=== PATIENT | female | born 1950 | race Caucasian/White ===

== ENCOUNTER 2016-10-07 13:48 | Emergency (ER) | payer MEDICARE, BC ==
[2016-10-07] MEDS ORDERED: Sodium Chloride 0.9% 1000 ML 1,000 ML IV STA (13:57)
[2016-10-07] MEDS ORDERED: Phenergan 25 MG INJ IV ONE (13:57)
--- NOTE | 2016-10-07 13:58 | ERPHSYRPT ---
- History of Present Illness Time Seen by Provider: 10/07/16 13:48 Source: patient Exam Limitations: no limitations Physician History: FOR THE PAST 2 DAYS PT HAS HAD DIZZINESS, VAGINAL DISCHARGE AND NAUSEA WITH AN OCCASIONAL COUGH. PT DENIES FEVER, VOMITING, CHEST PAIN. Allergies/Adverse Reactions: codeine [Codeine] Allergy (Verified 03/01/15 09:03) Vomiting diazepam [From Valium] Allergy (Verified 03/01/15 09:03) Hives "makes me mean" hydromorphone HCl [From Dilaudid] Allergy (Verified 03/01/15 09:03) Vomiting Penicillins Allergy (Verified 03/01/15 09:03) Itching Home Medications: Carvedilol 3.125 mg [Coreg 3.125 MG] 3.125 mg PO BID 07/27/14 [History] Clopidogrel Bisulfate 75 mg [PLAVIX 75 MG Tablet] 75 mg PO DAILY 07/27/14 [History] Gabapentin [Neurontin] 800 mg PO TID 07/27/14 [History] Insulin Glargine [Lantus Insulin] 30 unit SQ BID 07/27/14 [History] Insulin Lispro [Humalog] 3 unit SQ TIDAC 07/27/14 [History] Sertraline HCl 50 mg [Zoloft 50 mg Tablet] 50 mg PO HS 07/27/14 [History] Hx Tetanus, Diphtheria Vaccination/Date Given: Yes (7 YRS) Hx Influenza Vaccination/Date Given: Yes Hx Pneumococcal Vaccination/Date Given: Yes - Review of Systems Constitutional: No Fever Respiratory: Cough, No Dyspnea Cardiac: No Chest Pain Abdominal/Gastrointestinal: Nausea, No Vomiting Genitourinary Symptoms: Vaginal Discharge Neurological: Dizziness All Other Systems: Reviewed and Negative - Past Medical History Pertinent Past Medical History: Yes Neurological History: Peripheral Neuropathy ENT History: No Pertinent History Cardiac History: Coronary Artery Disease, Peripheral Vascular Disease Respiratory History: No Pertinent History Endocrine Medical History: Diabetes Type II Musculoskeletal History: No Pertinent History GI Medical History: Crohns Disease, Other History: No Pertinent History Psycho-Social History: Depression Female Reproductive Disorders: Cervical Cancer Other Medical History: TROPICAL SKIN DISEASE. 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 heartburn - Past Surgical History Past Surgical History: Yes Neuro Surgical History: No Pertinent History Cardiac: Cardiac Catheterization, Cardiac Stent Respiratory: No Pertinent History Gastrointestinal: Cholecystectomy, Colon Resection Genitourinary: No Pertinent History Musculoskeletal: Amputation Female Surgical History: Hysterectomy Other Surgical History: VASCULAR SURGERIES. LEFT LEG AMPUTATED. COLOSTOMY - Social History Smoking Status: Current every day smoker How long have you smoked: 45 Exposure to second hand smoke: Yes Drug Use: none Patient Lives Alone: Yes - Female History Hx Now: No - Nursing Vital Signs Nursing Vital Signs: Initial Vital Signs Temperature 98.2 F Temperature Source Oral Pulse Rate 104 Respiratory Rate 22 Blood Pressure [Left Arm] 128/76 Pain Intensity 3 - Physical Exam General Appearance: alert Eye Exam: PERRL/EOMI Ears, Nose, Throat Exam: pharynx normal, moist mucous membranes Neck Exam: normal inspection Respiratory Exam: lungs clear Cardiovascular Exam: normal heart sounds Gastrointestinal/Abdomen Exam: soft, normal bowel sounds, other (COLOSTOMY PRESENT WITHOUT SURROUNDING ERYTHEMA OR DISCHARGE) Pelvic Exam: vaginal discharge (MINIMAL WHITE DISCHARGE MID VULVA(NURSE PRESENT DURING EXAM).) Back Exam: normal range of motion Extremity Exam: other (LEFT LEG AMPUTEE) Neurologic Exam: alert, cooperative Skin Exam: No cyanosis - Course Nursing assessment & vital signs reviewed: Yes Ordered Tests: Active Orders 24 hr Category Date Time Status IV Insertion STAT Care 10/07/16 13:57 Active AMYLASE Stat Lab 10/07/16 14:20 Completed CBC W DIFF Stat Lab 10/07/16 14:20 Completed CMP Stat Lab 10/07/16 14:20 Completed CULTURE,URINE Stat Lab 10/07/16 14:35 Received CULTURE,URINE Stat Lab 10/07/16 14:35 Received LIPASE Stat Lab 10/07/16 14:20 Completed MAG [MAGNESIUM] Stat Lab 10/07/16 14:20 Completed Manual Differential NC Stat Lab 10/07/16 14:20 Completed UA W/ MICROSCOPIC Stat Lab 10/07/16 14:35 Completed UA W/RFX UR CULTURE Stat Lab 10/07/16 14:35 Completed Medication Summary Generic Name Dose Route Start Last Admin Trade Name Freq PRN Reason Stop Dose Admin Magnesium Sulfate/Dextrose 100 mls @ 200 mls/hr 10/07/16 15:22 Magnesium 1 Gm / 100 Ml D5w IV 10/07/16 15:51 STAT ONE Ceftriaxone Sodium/Dextrose 1 g in 50 mls @ 100 mls/hr 10/07/16 15:22 Rocephin 1 Gm-D5w 50 Ml Bag IV 10/07/16 15:51 STAT STA Discontinued Medications Generic Name Dose Route Start Last Admin Trade Name Mihaela PRN Reason Stop Dose Admin Sodium Chloride 1,000 mls @ 999 mls/hr 10/07/16 13:57 10/07/16 14:26 Sodium Chloride 0.9% 1000 Ml IV 10/07/16 14:57 999 mls/hr .Q1H1M STA Administration Sodium Chloride Confirm 10/07/16 14:04 Sodium Chloride 0.9% 1000 Ml Administered 10/07/16 14:05 Dose 1,000 mls @ ud .ROUTE .STK-MED ONE Promethazine HCl 12.5 mg 10/07/16 13:57 10/07/16 14:26 Phenergan 25 Mg Inj IV 10/07/16 13:58 12.5 mg STAT ONE Administration Promethazine HCl Confirm 10/07/16 14:04 Phenergan 25 Mg Inj Administered 10/07/16 14:05 Dose 25 mg .ROUTE .STK-MED ONE Lab/Rad Data: Laboratory Result Diagrams 10/07/16 14:20 10/07/16 14:20 Laboratory Results 10/07/16 10/07/16 10/07/16 Range/Units 14:35 14:35 14:20 WBC (4.0-10.5) K/mm3 RBC (4.1-5.4) M/mm3 Hgb (12.0-16.0) gm/dl Hct (35-47) % MCV (78-100) fl MCH (26-32) pg MCHC (32-36) g/dl RDW (11.5-14.0) % Plt Count (150-450) K/mm3 MPV (6-9.5) fl Segmented Neutrophils (36.0-66.0) % Lymphocytes (Manual) (24-44) % Monocytes (Manual) (0.0-12.0) % Differential Comment Platelet Estimate (NORMAL) Polychromasia Hypochromasia Microcytosis Sodium (136-145) mEq/L Potassium (3.5-5.1) mEq/L Chloride (98-107) mEq/L Carbon Dioxide (21-32) mEq/L Anion Gap (5-15) MEQ/L BUN (9-20) mg/dL Creatinine (0.55-1.30) mg/dl Estimated GFR ML/MIN Glucose (70-110) MG/DL Calcium (8.5-10.1) mg/dL Magnesium 1.5 L (1.8-2.4) mg/dL Total Bilirubin (0.2-1.0) mg/dL AST (15-37) U/L ALT (12-78) U/L Alkaline Phosphatase (46-116) U/L Serum Total Protein (6.4-8.2) gm/dL Albumin (3.4-5.0) g/dL Amylase (25-115) U/L Lipase (73-393) U/L Ur Collection Type INDWELLING CATH INDWELLING CATH Urine Color YELLOW YELLOW (YELLOW) Urine Appearance CLOUDY CLOUDY (CLEAR) Urine pH 5.0 7.0 (5-6) Ur Specific [place] 1.020 1.010 (1.005-1.025) Urine Protein 1+ 2+ (Negative) Urine Ketones NEGATIVE NEGATIVE (NEGATIVE) Urine Blood 50 250 (0-5) Sherif/ul Urine Nitrite POSITIVE POSITIVE (NEGATIVE) Urine Bilirubin NEGATIVE NEGATIVE (NEGATIVE) Urine Urobilinogen NORMAL NORMAL (0-1) mg/dL Ur Leukocyte Esterase 2+ 2+ (NEGATIVE) Urine Microscopic RBC 5-10 (0-2) /HPF Urine Microscopic WBC >100 (0-5) /HPF Urine Bacteria MANY (NEGATIVE) /HPF Urine Glucose 250 250 (NEGATIVE) mg/dL Specimen Received 10/07/16 1435 10/07/16 1435 10/07/16 10/07/16 Range/Units 14:20 14:20 WBC 5.8 (4.0-10.5) K/mm3 RBC 4.23 (4.1-5.4) M/mm3 Hgb 8.3 L (12.0-16.0) gm/dl Hct 28.5 L (35-47) % MCV 67.4 L (78-100) fl MCH 19.6 L (26-32) pg MCHC 29.1 L (32-36) g/dl RDW 17.2 H (11.5-14.0) % Plt Count 215 (150-450) K/mm3 MPV 10.3 H (6-9.5) fl Segmented Neutrophils 79 H (36.0-66.0) % Lymphocytes (Manual) 18 L (24-44) % Monocytes (Manual) 3 (0.0-12.0) % Differential Comment ABNORMAL Platelet Estimate NORMAL (NORMAL) Polychromasia 1+ Hypochromasia 3+ Microcytosis 2+ Sodium 136 (136-145) mEq/L Potassium 3.6 (3.5-5.1) mEq/L Chloride 100 (98-107) mEq/L Carbon Dioxide 26.3 (21-32) mEq/L Anion Gap 13.1 (5-15) MEQ/L BUN 11 (9-20) mg/dL Creatinine 0.84 (0.55-1.30) mg/dl Estimated GFR > 60 ML/MIN Glucose 198 H (70-110) MG/DL Calcium 9.4 (8.5-10.1) mg/dL Magnesium (1.8-2.4) mg/dL Total Bilirubin 0.20 (0.2-1.0) mg/dL AST 14 L (15-37) U/L ALT 14 (12-78) U/L Alkaline Phosphatase 89 (46-116) U/L Serum Total Protein 8.1 (6.4-8.2) gm/dL Albumin 2.5 L (3.4-5.0) g/dL Amylase 53 (25-115) U/L Lipase 124 (73-393) U/L Ur Collection Type Urine Color (YELLOW) Urine Appearance (CLEAR) Urine pH (5-6) Ur Specific [place] (1.005-1.025) Urine Protein (Negative) Urine Ketones (NEGATIVE) Urine Blood (0-5) Sherif/ul Urine Nitrite (NEGATIVE) Urine Bilirubin (NEGATIVE) Urine Urobilinogen (0-1) mg/dL Ur Leukocyte Esterase (NEGATIVE) Urine Microscopic RBC (0-2) /HPF Urine Microscopic WBC (0-5) /HPF Urine Bacteria (NEGATIVE) /HPF Urine Glucose (NEGATIVE) mg/dL Specimen Received - Progress Progress Note: 10/07/16 15:26 PT REFUSES HOSPITALIZATION. - Departure Time of Disposition: 15:32 Departure Disposition: Home Clinical Impression: UTI, VAGINAL CANDIDIASIS, ANEMIA, LEFT LEG AMPUTEE, HYPOMAGNESEMIA, PN, CAD, PVD, DM, DEPRESSION Condition: Stable Critical Care Time: No Referrals: PATRICIA GRAY [Primary Care Provider] - Instructions: Urinary Tract Infection (UTI) Additional Instructions: FOLLOW UP WITH PRIVATE DOCTOR TOMORROW. Prescriptions: Ferrous Sulfate 325 mg [Feosol 325 mg] 325 mg PO DAILY #30 tablet Miconazole Nitrate [Monistat 7] 1 ea VG DAILY #7 box Smz/Tmp Ds Tablet [Bactrim Ds Tablet] 1 udtab PO BID #20 tablet
[2016-10-07] MEDS ORDERED: Sodium Chloride 0.9% 1000 ML 1,000 ML ONE (14:04)
[2016-10-07] MEDS ORDERED: Phenergan 25 MG INJ ONE (14:04)
[2016-10-07 14:32] LABS: Mean Cell Volume 67.4 fl (78-100); Mean Corpuscular Hemoglobin 19.6 pg (26-32); Mean Platelet Volume 10.3 fl (6-9.5); Platelet Count 215 K/mm3 (150-450); Red Blood Count 4.23 M/mm3 (4.1-5.4); Red Cell Distribution Width 17.2 % (11.5-14.0); White Blood Count 5.8 K/mm3 (4.0-10.5)
[2016-10-07 14:49] LABS: Collection Type INDWELLING CATH
[2016-10-07 14:50] LABS: ADD URINE CULTURE? YES (NO); Bilirubin NEGATIVE (NEGATIVE); Blood 250 Ery/ul (0-5); COMPLETE URINE MICROSCOPIC? YES; Glucose 250 mg/dL (NEGATIVE); Leukocyte Esterase 2+ (NEGATIVE)
[2016-10-07 14:55] LABS: Bilirubin NEGATIVE (NEGATIVE); COMPLETE URINE MICROSCOPIC? YES; Collection Type INDWELLING CATH; Glucose 250 mg/dL (NEGATIVE); Leukocyte Esterase 2+ (NEGATIVE)
[2016-10-07 14:56] LABS: ADD URINE CULTURE? YES (NO)
[2016-10-07 14:58] LABS: ALBUMIN 2.5 g/dL (3.4-5.0); ALKALINE PHOSPHATASE 89 U/L (46-116); ANION GAP 13.1 MEQ/L (5-15); BLOOD UREA NITROGEN 11 mg/dL (9-20); CHLORIDE 100 mEq/L (98-107); Carbon Dioxide 26.3 mEq/L (21-32); Glucose 198 MG/DL (70-110); LIPASE 124 U/L (73-393); Potassium 3.6 mEq/L (3.5-5.1); SGOT/AST 14 U/L (15-37); SGPT/ALT 14 U/L (12-78); SODIUM 136 mEq/L (136-145); Total Protein 8.1 gm/dL (6.4-8.2)
[2016-10-07 14:59] LABS: Bacteria MANY /HPF (NEGATIVE); WBC >100 /HPF (0-5)
[2016-10-07 15:01] LABS: Blood 50 Ery/ul (0-5)
[2016-10-07] MEDS ORDERED: ROCEPHIN 1 Gm-D5w 50 ml Bag** 1 G/50 ML IVPB IV STA (15:22)
[2016-10-07] MEDS ORDERED: Magnesium 1 Gm / 100 Ml D5W*** 100 ML IV ONE ×2 (15:22→15:36)
[2016-10-07 15:25] LABS: Platelet Estimate NORMAL (NORMAL); Total Cells Counted 100
[2016-10-07 15:28] LABS: Hypochromia 3+; Microcytosis 2+; Polychromasia 1+
[2016-10-07 15:32] VITALS: BP 134/82; PULSE 86; O2SAT 96
[2016-10-07] MEDS ORDERED: ROCEPHIN 1 Gm-D5w 50 ml Bag** 1 G/50 ML IVPB IV ONE (15:36)
== END 2016-10-07 16:40 | disposition home or self-care (01) ==
LOC: ED 13:48
DX: Z89.612 Acquired absence of left leg above knee (principal); E83.42 Hypomagnesemia; J18.9 Pneumonia, unspecified organism; I25.10 Atherosclerotic heart disease of native coronary artery without angina pectoris; I73.9 Peripheral vascular disease, unspecified; E11.9 Type 2 diabetes mellitus without complications; F32.9 Major depressive disorder, single episode, unspecified
CPT/HCPCS: 36000; 36415; 80053; 81000; 81002; 82150; 83690; 83735; 85025; 87077; 87086; 87186; 96360; 96361; 99284; J0696; J2550; J3475

== ENCOUNTER 2017-01-11 14:31 | Emergency (ER) | payer MEDICARE ==
[2017-01-11] MEDS ORDERED: Sodium Chloride 0.9% 1000 ML 1,000 ML IV STA (15:28)
[2017-01-11 15:30] VITALS: PULSE 80; O2SAT 95
[2017-01-11 15:37] LABS: ADD URINE CULTURE? YES (NO); Bilirubin NEGATIVE (NEGATIVE); Blood 250 Ery/ul (0-5); COMPLETE URINE MICROSCOPIC? YES; Collection Type CATH; Glucose NEGATIVE (NEGATIVE); Leukocyte Esterase 2+ (NEGATIVE)
[2017-01-11 15:38] LABS: ADD URINE CULTURE? YES (NO); Bilirubin NEGATIVE (NEGATIVE); COMPLETE URINE MICROSCOPIC? YES; Glucose NEGATIVE (NEGATIVE); Leukocyte Esterase 2+ (NEGATIVE)
[2017-01-11 15:45] LABS: Bacteria PACKED /HPF (NEGATIVE); WBC 50-100 /HPF (0-5)
[2017-01-11 15:46] LABS: Blood 50 Ery/ul (0-5)
[2017-01-11] MEDS ORDERED: Sodium Chloride 0.9% 1000 ML 1,000 ML ONE (15:48)
[2017-01-11 15:49] LABS: Mean Cell Volume 73.1 fl (78-100); Mean Corpuscular Hemoglobin 22.4 pg (26-32); Mean Platelet Volume 10.4 fl (6-9.5); Platelet Count 176 K/mm3 (150-450); Red Blood Count 4.46 M/mm3 (4.1-5.4); Red Cell Distribution Width 15.5 % (11.5-14.0)
[2017-01-11 15:53] VITALS: BP 121/74
[2017-01-11] MEDS ORDERED: Levaquin 250MG/50ML D5W 250 MG/50 ML BAG IV STA (16:02)
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
[2017-01-11 16:14] LABS: ALBUMIN 2.2 g/dL (3.4-5.0); ALKALINE PHOSPHATASE 96 U/L (46-116); ANION GAP 11.9 MEQ/L (5-15); BLOOD UREA NITROGEN 8 mg/dL (9-20); CHLORIDE 102 mEq/L (98-107); Carbon Dioxide 28.2 mEq/L (21-32); Glucose 213 MG/DL (70-110); Potassium 3.7 mEq/L (3.5-5.1); SGOT/AST 25 U/L (15-37); SGPT/ALT 33 U/L (12-78); SODIUM 138 mEq/L (136-145)
[2017-01-11] MEDS ORDERED: Levaquin 250MG/50ML D5W 250 MG/50 ML BAG IV ONE (16:26)
[2017-01-11 17:24] LABS: ATYPICAL LYMPHS 3 %; Eosinophil 1 % (0.00-3.0); Platelet Estimate NORMAL (NORMAL); Total Cells Counted 100
== END 2017-01-11 17:29 | disposition home or self-care (01) ==
LOC: ED 14:31
DX: N10 Acute pyelonephritis (principal); E11.9 Type 2 diabetes mellitus without complications; R10.9 Unspecified abdominal pain; Z79.899 Other long term (current) drug therapy; Z79.4 Long term (current) use of insulin
CPT/HCPCS: 36000; 36415; 80053; 81000; 81002; 85025; 87077; 87086; 87186; 96360; 96361; 99284; J1956

== ENCOUNTER 2017-11-19 10:20 | Inpatient (IN) | payer MEDICARE ==
[2017-11-19] MEDS ORDERED: MORPHINE SULFATE 4 MG INJ IV ONE (10:41)
[2017-11-19] MEDS ORDERED: Phenergan 25 MG INJ IV ONE (10:42)
[2017-11-19] MEDS ORDERED: Sodium Chloride 0.9% 1000 ML 1,000 ML IV SCH (10:45)
[2017-11-19] MEDS ORDERED: MORPHINE SULFATE 4 MG INJ ONE (10:47)
[2017-11-19] MEDS ORDERED: Sodium Chloride 0.9% 1000 ML 1,000 ML ONE (10:47)
[2017-11-19] MEDS ORDERED: Phenergan 25 MG INJ ONE (10:47)
--- NOTE | 2017-11-19 10:50 | ERPHSYRPT ---
- History of Present Illness Time Seen by Provider: 11/19/17 10:44 Source: patient Exam Limitations: no limitations Patient Subjective Stated Complaint: PT states "I am having pain in my buttocks and in my back.". Home health nurse states "I am sending her your way due to two new wounds. One wound is on her left buttock and left hip that just sprang up. She also has bilateral nephrostomy that we do not know what to do with." Triage Nursing Assessment: Pt alert and oriented X 3, skin pwd. PT able to speak in clear full sentences. Pt is bilateral amputee, right stump is still healing. Pt has bilateral nephrosotmy tubes. PT has non blanchable wound on right hip and buttock. no apparent respiratory distress. Physician History: 67-year-old white female with history of double amputee, recurrent UTI, diabetes mellitus, peripheral neuropathy, peripheral vascular disease. She arrives with complaint of ulcers on her back pain in her back. Symptoms for approximately 3 weeks however she states she is getting much worse over the last day. She denies any fevers she has no chest pain she is not short of breath she has no abdominal pain no nausea no vomiting. 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, colostomy Past surgical history includes cardiac catheterization, cardiac stent, cholecystectomy, colon resection, bilateral amputations lower extremities, hysterectomy, colostomy, bilateral nephrostomy Social history positive for tobacco use denies alcohol or illicit drug use Timing/Duration: week(s) (3 weeks worse for the last several days) Severity: moderate Modifying Factors: Improves With: nothing Associated Symptoms: other (decubitus ulcers on sacrum and left hip ), No nausea , No vomiting, No abdominal pain, No shortness of breath, No heartburn, No diaphoresis, No cough, No chills, No chest pain, No fever, No headaches, No loss of appetite, No malaise, No rash, No syncope, No seizure, No weakness Allergies/Adverse Reactions: codeine [Codeine] Allergy (Verified 03/01/15 09:03) Vomiting diazepam [From Valium] Allergy (Verified 03/01/15 09:03) Hives "makes me mean" hydromorphone HCl [From Dilaudid] Allergy (Verified 03/01/15 09:03) Vomiting Penicillins Allergy (Verified 03/01/15 09:03) Itching Home Medications: Carvedilol 3.125 mg [Coreg 3.125 MG] 3.125 mg PO BID 07/27/14 [History] Clopidogrel Bisulfate 75 mg [PLAVIX 75 MG Tablet] 75 mg PO DAILY 07/27/14 [History] Gabapentin [Neurontin] 800 mg PO TID 07/27/14 [History] Insulin Glargine [Lantus Insulin] 30 unit SQ BID 07/27/14 [History] Insulin Lispro [Humalog] 3 unit SQ TIDAC 07/27/14 [History] Sertraline HCl 50 mg [Zoloft 50 mg Tablet] 50 mg PO HS 07/27/14 [History] Hx Tetanus, Diphtheria Vaccination/Date Given: Yes Hx Influenza Vaccination/Date Given: Yes Hx Pneumococcal Vaccination/Date Given: No Immunizations Up to Date: Yes - Review of Systems Constitutional: No Fever, No Chills Eyes: No Symptoms Ears, Nose, & Throat: No Symptoms Respiratory: No Cough, No Dyspnea Cardiac: No Chest Pain, No Edema, No Syncope Abdominal/Gastrointestinal: No Abdominal Pain, No Nausea, No Vomiting, No Diarrhea Genitourinary Symptoms: No Dysuria Musculoskeletal: Back Pain Skin: Other (decubitus ulcers on sacrum and left hip) Neurological: No Dizziness, No Focal Weakness, No Sensory Changes Psychological: No Symptoms Endocrine: No Symptoms All Other Systems: Reviewed and Negative - Past Medical History Pertinent Past Medical History: Yes Neurological History: Peripheral Neuropathy ENT History: No Pertinent History Cardiac History: Coronary Artery Disease, Peripheral Vascular Disease Respiratory History: No Pertinent History Endocrine Medical History: Diabetes Type II Musculoskeletal History: No Pertinent History GI Medical History: Crohns Disease, Other History: No Pertinent History Psycho-Social History: Depression Female Reproductive Disorders: Cervical Cancer Other Medical History: TROPICAL SKIN DISEASE. 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 heartburn - Past Surgical History Past Surgical History: Yes Neuro Surgical History: No Pertinent History Cardiac: Cardiac Catheterization, Cardiac Stent Respiratory: No Pertinent History Gastrointestinal: Cholecystectomy, Colon Resection Genitourinary: No Pertinent History Musculoskeletal: Amputation Female Surgical History: Hysterectomy Other Surgical History: VASCULAR SURGERIES. LEFT LEG AMPUTATED. COLOSTOMY. right leg amputated - Social History Smoking Status: Current every day smoker How long have you smoked: years Exposure to second hand smoke: Yes Drug Use: none Patient Lives Alone: Yes - Female History Hx Now: No - Nursing Vital Signs Nursing Vital Signs: Initial Vital Signs Temperature 97.2 F 11/19/17 10:22 Pulse Rate 98 H 11/19/17 10:22 Respiratory Rate 18 11/19/17 10:22 Blood Pressure 115/74 11/19/17 10:22 O2 Sat by Pulse Oximetry 9 L 11/19/17 10:22 Pain Scale Pain Intensity 0 - Physical Exam General Appearance: other (well-developed white female alert oriented 3, mild amount of distress initially however moderate pain after moving around for examination of her decub on decubitus ulcersitus ulcers) Eye Exam: PERRL/EOMI, eyes nml inspection Ears, Nose, Throat Exam: normal ENT inspection, TMs normal, pharynx normal, moist mucous membranes Neck Exam: normal inspection, non-tender, supple, full range of motion Respiratory Exam: normal breath sounds, lungs clear, No respiratory distress Cardiovascular Exam: regular rate/rhythm, normal heart sounds, normal peripheral pulses Gastrointestinal/Abdomen Exam: soft (.), normal bowel sounds, No tenderness, No mass Back Exam: other (large sacral decubiti left side at about 15 cm, 8 cm erythematous area left posterior hip, bilateral nephrostomy tubes , status post bilateral aka, right wound open with mild erythma lateral aspect of wound) Extremity Exam: other (bilateral aka, right side with mild erythema lateral aspect of wound, ) Neurologic Exam: alert, oriented x 3, cooperative, 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 ) SpO2 Interpretation: normal (99%) SpO2: 99 Oxygen Delivery: Room Air - Course Nursing assessment & vital signs reviewed: Yes EKG Interpreted by Me: RATE (95 bpm), Sinus Rhythm, NORMAL AXIS, Other (EKG: Sinus rhythm, 95 bpm, normal axis,poor anterior R-wave progression, no acute ST or T wave changes) Ordered Tests: Active Orders 24 hr Category Date Time Status Accucheck STAT Care 11/19/17 10:40 Active Accucheck STAT Care 11/19/17 12:53 Active EKG-ER Only STAT Care 11/19/17 11:08 Active IV Insertion STAT Care 11/19/17 10:40 Active Wound Care STAT Care 11/19/17 10:40 Active BLOOD CULTURE Stat Lab 11/19/17 11:00 Received CBC W DIFF Stat Lab 11/19/17 10:45 Completed CMP Stat Lab 11/19/17 10:45 Completed CULTURE,URINE Stat Lab 11/19/17 12:25 Received CULTURE,WOUND Stat Lab 11/19/17 12:25 Received Lactic Acid Stat Lab 11/19/17 11:01 Completed Manual Differential NC Stat Lab 11/19/17 10:45 Completed UA W/ MICROSCOPIC Stat Lab 11/19/17 12:25 Completed Transfer Order Routine Transfer 11/19/17 Ordered Medication Summary Generic Name Dose Route Start Last Admin Trade Name Freq PRN Reason Stop Dose Admin Sodium Chloride 1,000 mls @ 100 mls/hr 11/19/17 10:45 11/19/17 10:48 Sodium Chloride 0.9% 1000 Ml IV 12/19/17 10:44 100 mls/hr .Q10H LEROY Administration Discontinued Medications Generic Name Dose Route Start Last Admin Trade Name Freq PRN Reason Stop Dose Admin Levofloxacin/Dextrose 500 mg in 100 mls @ 100 mls/hr 11/19/17 12:52 11/19/17 13:03 Levofloxacin 500mg/100ml D5w IV 11/19/17 13:51 100 mls/hr STAT STA 100 mls/hr Administration Levofloxacin/Dextrose Confirm 11/19/17 13:01 Levofloxacin 500mg/100ml D5w Administered 11/19/17 13:02 Dose 500 mg in 100 mls @ ud IV .STK-MED ONE Insulin Human Regular 9 unit 11/19/17 13:34 11/19/17 13:53 Novolin R SQ 11/19/17 13:35 9 unit STAT ONE Administration Insulin Human Regular Confirm 11/19/17 13:52 Novolin R Administered 11/19/17 13:53 Dose 9 unit .ROUTE .STK-MED ONE Morphine Sulfate 4 mg 11/19/17 10:41 11/19/17 10:48 Morphine Sulfate 4 Mg Inj IV 11/19/17 10:42 4 mg STAT ONE Administration Morphine Sulfate Confirm 11/19/17 10:47 Morphine Sulfate 4 Mg Inj Administered 11/19/17 10:48 Dose 4 mg .ROUTE .STK-MED ONE Promethazine HCl 12.5 mg 11/19/17 10:42 11/19/17 10:49 Phenergan 25 Mg Inj IV 11/19/17 10:43 12.5 mg STAT ONE Administration Promethazine HCl Confirm 11/19/17 10:47 Phenergan 25 Mg Inj Administered 11/19/17 10:48 Dose 25 mg .ROUTE .STK-MED ONE Lab/Rad Data: Laboratory Result Diagrams 11/19/17 10:45 11/19/17 10:45 Laboratory Results 11/19/17 11/19/17 11/19/17 Range/Units 12:25 11:01 10:45 WBC (4.0-10.5) K/mm3 RBC (4.1-5.4) M/mm3 Hgb (12.0-16.0) gm/dl Hct (35-47) % MCV (78-100) fl MCH (26-32) pg MCHC (32-36) g/dl RDW (11.5-14.0) % Plt Count (150-450) K/mm3 MPV (6-9.5) fl Absolute Granulocytes (1.4-6.9) Segmented Neutrophils (36.0-66.0) % Lymphocytes (Manual) (24-44) % Platelet Estimate (NORMAL) RBC Morphology Poikilocytosis Anisocytosis Sodium 132 L (137-145) mmol/L Potassium 4.2 (3.5-5.1) mmol/L Chloride 94 L (98-107) mmol/L Carbon Dioxide 26 (22-30) mmol/L Anion Gap 16.2 H (5-15) MEQ/L BUN 19 H (7-17) mg/dL Creatinine 0.52 (0.52-1.04) mg/dL Estimated GFR > 60.0 ML/MIN Glucose 342 H (74-106) mg/dL Lactic Acid 1.5 (0.4-2.0) Calcium 9.3 (8.4-10.2) mg/dL Total Bilirubin 0.80 (0.2-1.3) mg/dL AST 14 (14-36) U/L ALT 12 (0-35) U/L Alkaline Phosphatase 150 H (38-126) U/L Serum Total Protein 7.2 (6.3-8.2) g/dL Albumin 3.3 L (3.5-5.0) g/dL Ur Collection Type VOID Urine Color YELLOW (YELLOW) Urine Appearance CLOUDY (CLEAR) Urine pH 5.0 (5-6) Ur Specific White 1.025 (1.005-1.025) Urine Protein 500 (Negative) Urine Ketones LARGE (NEGATIVE) Urine Blood 250 (0-5) Sherif/ul Urine Nitrite NEGATIVE (NEGATIVE) Urine Bilirubin NEGATIVE (NEGATIVE) Urine Urobilinogen 1 (0-1) mg/dL Ur Leukocyte Esterase 2+ (NEGATIVE) Urine Microscopic RBC >100 (0-2) /HPF Urine Microscopic WBC >100 (0-5) /HPF Ur Epithelial Cells MODERATE (FEW) /HPF Urine Bacteria MANY (NEGATIVE) /HPF Urine Culture Reflexed YES (NO) Urine Glucose 1000 (NEGATIVE) mg/dL Specimen Received 11/18/17 1200 11/19/17 Range/Units 10:45 WBC 10.6 H (4.0-10.5) K/mm3 RBC 5.17 (4.1-5.4) M/mm3 Hgb 11.1 L (12.0-16.0) gm/dl Hct 35.8 (35-47) % MCV 69.2 L (78-100) fl MCH 21.4 L (26-32) pg MCHC 31.0 L (32-36) g/dl RDW 19.7 H (11.5-14.0) % Plt Count 210 (150-450) K/mm3 MPV 11.3 H (6-9.5) fl Absolute Granulocytes 9.21 H (1.4-6.9) Segmented Neutrophils 95 H (36.0-66.0) % Lymphocytes (Manual) 5 L (24-44) % Platelet Estimate NORMAL (NORMAL) RBC Morphology ABNORMAL Poikilocytosis 1+ Anisocytosis 1+ Sodium (137-145) mmol/L Potassium (3.5-5.1) mmol/L Chloride (98-107) mmol/L Carbon Dioxide (22-30) mmol/L Anion Gap (5-15) MEQ/L BUN (7-17) mg/dL Creatinine (0.52-1.04) mg/dL Estimated GFR ML/MIN Glucose (74-106) mg/dL Lactic Acid (0.4-2.0) Calcium (8.4-10.2) mg/dL Total Bilirubin (0.2-1.3) mg/dL AST (14-36) U/L ALT (0-35) U/L Alkaline Phosphatase (38-126) U/L Serum Total Protein (6.3-8.2) g/dL Albumin (3.5-5.0) g/dL Ur Collection Type Urine Color (YELLOW) Urine Appearance (CLEAR) Urine pH (5-6) Ur Specific White (1.005-1.025) Urine Protein (Negative) Urine Ketones (NEGATIVE) Urine Blood (0-5) Sherif/ul Urine Nitrite (NEGATIVE) Urine Bilirubin (NEGATIVE) Urine Urobilinogen (0-1) mg/dL Ur Leukocyte Esterase (NEGATIVE) Urine Microscopic RBC (0-2) /HPF Urine Microscopic WBC (0-5) /HPF Ur Epithelial Cells (FEW) /HPF Urine Bacteria (NEGATIVE) /HPF Urine Culture Reflexed (NO) Urine Glucose (NEGATIVE) mg/dL Specimen Received - Progress Progress: improved Progress Note: 11/19/17 10:58 This is a 67-year-old white female status post right [id number] amputation 2 months ago who had a previous left [id number] amputation who has a history of nephrostomy, recurrent UTI, diabetes mellitus, peripheral neuropathy , coronary artery disease, peripheral vascular disease She is brought by ambulance with complaints that she is been having decubitus ulcers these are located on the sacrum and the left posterior hip she states that these have been there for 2-3 weeks but is worse the last day or 2 and she feels like they're getting bigger she states she is having pain in the area She denies any chest pain shortness of breath nausea vomiting or fevers On physical examination patient has a 15 cm left sacral decubiti. As well as an 8 cm area of erythema on the left posterior hip she has moderate pain when she is moved to examine these. She also has what appears to be the opening her incomplete healing of the right wound from amputation She has slight amount of erythema along the wound margin. Patient does have bilateral nephrostomy tubes and has a history of frequent urinary tract infection as well as diabetes. Appropriate labs have been obtained wound cultures of the right stump from amputation have been obtained. Patient is given morphine and Phenergan for pain. IV normal saline at 100 mL per hour has been started. Will await lab work. Consider antibiotics patient is allergic to penicillins however she has received Rocephin in the past. 11/19/17 13:49 Patient was greater than 100 white cells greater than 100 red cells in her urine. Patient with sacral decubiti left hip decubiti. Possible wound infection right stump. Patient also with elevated glucose. Patient is given Levaquin 500 mg IV. Also IV fluids also given Humulin R 9 units subcutaneously. I've discussed the case with Dr. Clifton. Will place patient on observation telemetry. Provide IV fluids. Continue Levaquin insulin coverage. Also will have pharmacy calculated dose of vancomycin. - Departure Time of Disposition: 13:51 Departure Disposition: Observation Clinical Impression: Hyperglycemia, decubitus ulcer left posterior hip UTI (urinary tract infection) Qualifiers: Urinary tract infection type: site unspecified Hematuria presence: with hematuria Qualified Code(s): N39.0 - Urinary tract infection, site not specified Sacral decubitus ulcer Qualifiers: Pressure injury stage: unspecified pressure injury stage Qualified Code(s): L89.159 - Pressure ulcer of sacral region, unspecified stage Condition: Fair Critical Care Time: No Referrals: PATRICIA GRAY [Primary Care Provider] -
[2017-11-19 11:16] LABS: Granulocyte Absolute (ANC) 9.21 (1.4-6.9); Hematocrit 35.8 % (35-47); Hemoglobin 11.1 gm/dl (12.0-16.0); Mean Cell Volume 69.2 fl (78-100); Mean Platelet Volume 11.3 fl (6-9.5); Platelet Count 210 K/mm3 (150-450); Red Blood Count 5.17 M/mm3 (4.1-5.4); Red Cell Distribution Width 19.7 % (11.5-14.0); White Blood Count 10.6 K/mm3 (4.0-10.5)
[2017-11-19 11:36] LABS: Mean Corpuscular Hemoglobin 21.4 pg (26-32)
[2017-11-19 11:48] LABS: ALBUMIN 3.3 g/dL (3.5-5.0); ALKALINE PHOSPHATASE 150 U/L (38-126); ANION GAP 16.2 MEQ/L (5-15); BLOOD UREA NITROGEN 19 mg/dL (7-17); CHLORIDE 94 mmol/L (98-107); Calcium 9.3 mg/dL (8.4-10.2); Carbon Dioxide 26 mmol/L (22-30); Creatinine 1 0.52 mg/dL (0.52-1.04); Glucose 342 mg/dL (74-106); Potassium 4.2 mmol/L (3.5-5.1); SGOT/AST 14 U/L (14-36); SGPT/ALT 12 U/L (0-35); SODIUM 132 mmol/L (137-145); Total Protein 7.2 g/dL (6.3-8.2)
[2017-11-19 12:02] LABS: ANISOCYTOSIS 1+; Lymphocytes 5 % (24-44); Neutrophils 95 % (36.0-66.0); Platelet Estimate NORMAL (NORMAL); Poikilocytosis 1+; Total Cells Counted 100
[2017-11-19 12:41] LABS: Appearance CLOUDY (CLEAR); Bilirubin NEGATIVE (NEGATIVE); Blood 250 Ery/ul (0-5); Glucose 1000 mg/dL (NEGATIVE); Ketones LARGE (NEGATIVE); Leukocyte Esterase 2+ (NEGATIVE); Nitrite NEGATIVE (NEGATIVE); Protein,Urine Dip 500 (Negative); Specific Gravity 1.025 (1.005-1.025); Urobilinogen 1 mg/dL (0-1)
[2017-11-19 12:47] LABS: Bacteria MANY /HPF (NEGATIVE); Epithelial Cells MODERATE /HPF (FEW); RBC >100 /HPF (0-2); WBC >100 /HPF (0-5)
[2017-11-19] MEDS ORDERED: Levofloxacin 500MG/100ML D5W 500 MG/100 ML BAG IV STA (12:52)
[2017-11-19] MEDS ORDERED: Levofloxacin 500MG/100ML D5W 500 MG/100 ML BAG IV ONE (13:01)
[2017-11-19] MEDS ORDERED: NovoLIN R SQ ONE (13:34)
[2017-11-19] MEDS ORDERED: NovoLIN R ONE (13:52)
[2017-11-19] MEDS ORDERED: PHARMACY DOSING REQUIRED: VANCOMYCIN IV ONE (14:28)
[2017-11-19] MEDS ORDERED: Phenergan 25 MG INJ IV PRN (14:28)
[2017-11-19] MEDS ORDERED: INSULIN LISPRO 3 UNIT SQ SCH (16:30)
[2017-11-19] MEDS: NovoLOG Insulin SQ PRN (17:02)
[2017-11-19] MEDS: NovoLOG Insulin SQ SCH (17:03)
[2017-11-19] MEDS: VANCOCIN 500 MG VIAL*** 500 MG in Sodium Chloride 100ML MINI-BAG PLUS 100 ML IV SCH (17:05)
[2017-11-19] MEDS: MORPHINE SULFATE 4 MG INJ IV PRN (19:49)
[2017-11-19] MEDS: Sodium Chloride 0.9% 1000 ML 1,000 ML IV SCH (19:55)
[2017-11-19] MEDS: Neurontin 400 MG PO SCH (21:20)
[2017-11-19] MEDS: ZOLOFT 50 MG TABLET PO SCH (21:20)
[2017-11-19] MEDS: Coreg 3.125 MG PO SCH (21:20)
[2017-11-19] MEDS ORDERED: NON-FORMULARY ITEM (Gabapentin [Neurontin] 800 MG) PO SCH (22:00)
[2017-11-19] MEDS: Lantus Insulin SQ SCH (22:24)
[2017-11-20] MEDS: Monistat 7 VG SCH ×2 (00:34→21:20)
[2017-11-20] MEDS: VANCOCIN 500 MG VIAL*** 500 MG in Sodium Chloride 100ML MINI-BAG PLUS 100 ML IV SCH ×2 (05:45→17:49)
[2017-11-20] MEDS: Sodium Chloride 0.9% 1000 ML 1,000 ML IV SCH ×2 (05:48→18:40)
[2017-11-20 05:53] LABS: Hematocrit 30.3 % (35-47); Hemoglobin 9.1 gm/dl (12.0-16.0); Mean Corpuscular Hemoglobin 21.6 pg (26-32); Mean Platelet Volume 10.8 fl (6-9.5); Platelet Count 150 K/mm3 (150-450); Red Blood Count 4.21 M/mm3 (4.1-5.4); Red Cell Distribution Width 18.9 % (11.5-14.0); White Blood Count 7.6 K/mm3 (4.0-10.5)
[2017-11-20 06:11] LABS: ALBUMIN 2.6 g/dL (3.5-5.0); ALKALINE PHOSPHATASE 99 U/L (38-126); ANION GAP 11.3 MEQ/L (5-15); BLOOD UREA NITROGEN 13 mg/dL (7-17); CHLORIDE 101 mmol/L (98-107); Calcium 8.4 mg/dL (8.4-10.2); Carbon Dioxide 26 mmol/L (22-30); Creatinine 1 0.47 mg/dL (0.52-1.04); Glucose 213 mg/dL (74-106); Potassium 4.1 mmol/L (3.5-5.1); SGOT/AST 12 U/L (14-36); SGPT/ALT 8 U/L (0-35); SODIUM 135 mmol/L (137-145); Total Protein 5.9 g/dL (6.3-8.2)
[2017-11-20 07:09] LABS: ANISOCYTOSIS 1+; BAND 9 % (0.0-2.0); Hypochromia 1+; Lymphocytes 4 % (24-44); Monocyte 4 % (0.0-12.0); Neutrophils 83 % (36.0-66.0); Platelet Estimate NORMAL (NORMAL); Total Cells Counted 100
--- NOTE | 2017-11-20 07:51 | HP ---
CHIEF COMPLAINT: 1) Pain in the buttocks and back from decubitus ulcer. 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 3) Diabetes mellitus type 2 poorly controlled. 4) History of cervical cancer and bilateral nephrostomies. HISTORY OF PRESENT ILLNESS: The patient is a 67 year-old white female who has been becoming increasingly difficult to care for in the home. She has home visiting nurses. She has one son who lives in [facility] that visits her every day to bring her food. The patient had apparently been in [facility] and had gangrene of the leg and had an amputation by Dr. Scott which was apparently healing but more recently has opened up at the old suture line. The patient apparently on evaluation was found to be covered in feces. The patient is adamant about not going to a group home for her care. PAST MEDICAL/SURGICAL HISTORY: HOME MEDICATIONS: Carvedilol 3.125 mg b.i.d., Plavix 75 mg daily, gabapentin 800 mg t.i.d., insulin 30 units subcu Lantus b.i.d. and 3 units subcu before each meal. She is on Zoloft 50 mg at night. ALLERGIES: CODEINE, DIAZEPAM, DILAUDID, PENICILLIN. PHYSICAL EXAMINATION: Revealed an elderly patient who is alert and oriented x3, appears to be older than her stated age. Her vital signs on admission showed a temperature 97.2F, pulse 98, respiratory rate 18, blood pressure 115/74. O2 saturation at 90%. HEENT: Normocephalic, atraumatic. Pupils equal round reactive to light. Extraocular movements intact. Oropharynx is dry. NECK: Supple without lymphadenopathy, thyromegaly or JVD. CHEST: Currently is clear to auscultation. HEART: Regular rate and rhythm without significant murmurs, rubs or gallops. ABDOMEN: Revealed the bilateral nephrostomies and bags in place. No palpable masses were felt. EXTREMITIES: Revealed the amputations. There is also decubitus ulcers along the back and buttocks this has been photo documented and on the chart. LAB DATA AND TESTS: Revealed UA showing 2+ leukocytes. Nitrite however is negative. There is 500 protein. Glucose greater than 1,000. Ketones were large. There are greater than 100 white blood cells and greater than 100 red blood cells on high power field. Her white blood cell count was 10,600. Hemoglobin 11.1 with hypochromic microcytic indices present. PLT count 210,000. Metabolic panel showed nonfasting sugar of 342, BUN 19, creatinine 0.52. Sodium low at 132, potassium normal. Albumin low at 3.3. Liver enzymes are normal. Alkaline phosphatase elevated at 150. Lactic acid 1.5. ASSESSMENT: A patient with decubitus wounds, poor healing, diabetic and diabetic peripheral neuropathy. The patient has been admitted for IV antibiotic therapy, OT/PT consults for wound care management of decubitus ulcers. We are going to place a PICC line for IV antibiotic treatment with Vancomycin for what will likely be at least a week or more. She is also placed on Levaquin while cultures are pending on the urine. She will be receiving insulin on a sliding scale coverage in addition to her usual insulin for coverage of her diabetes. We are going to ask Adult Protective Services to see the patient as she currently has apparently deplorable living conditions, being visibly covered with feces upon arrival and unable to care for herself at this point as illustrated by the decubitus wounds. She is weak and unable to transfer without assistance. The patient will be continued on her home medications otherwise as above.
[2017-11-20] MEDS: NovoLOG Insulin SQ PRN ×2 (08:07→11:32)
[2017-11-20] MEDS: NovoLOG Insulin SQ SCH ×3 (08:08→16:29)
[2017-11-20] MEDS: Levofloxacin 500MG/100ML D5W 500 MG/100 ML BAG IV SCH (09:38)
[2017-11-20] MEDS: Neurontin 400 MG PO SCH ×3 (09:42→21:12)
[2017-11-20] MEDS: Coreg 3.125 MG PO SCH ×2 (09:42→21:13)
[2017-11-20] MEDS: PLAVIX 75 MG Tablet PO SCH (09:42)
[2017-11-20] MEDS: FEOSOL 325 MG PO SCH (09:42)
[2017-11-20] MEDS: Lantus Insulin SQ SCH ×2 (10:11→21:14)
[2017-11-20] MEDS: MORPHINE SULFATE 4 MG INJ IV PRN ×2 (10:21→17:49)
[2017-11-20] MEDS: ZOLOFT 50 MG TABLET PO SCH (21:12)
[2017-11-21] MEDS: MORPHINE SULFATE 4 MG INJ IV PRN ×2 (00:13→20:48)
[2017-11-21] MEDS: Sodium Chloride 0.9% 1000 ML 1,000 ML IV SCH (04:46)
[2017-11-21] MEDS ORDERED: TROUGH DRUG LEVELS IJ ONE (05:30)
[2017-11-21 05:56] LABS: Hematocrit 28.7 % (35-47); Hemoglobin 8.6 gm/dl (12.0-16.0); Mean Cell Volume 72.1 fl (78-100); Mean Corpuscular Hemoglobin 21.6 pg (26-32); Mean Platelet Volume 10.2 fl (6-9.5); Platelet Count 127 K/mm3 (150-450); Red Blood Count 3.98 M/mm3 (4.1-5.4); Red Cell Distribution Width 18.9 % (11.5-14.0); White Blood Count 5.8 K/mm3 (4.0-10.5)
[2017-11-21 06:16] LABS: BLOOD UREA NITROGEN 10 mg/dL (7-17); CHLORIDE 104 mmol/L (98-107); Calcium 7.8 mg/dL (8.4-10.2); Carbon Dioxide 27 mmol/L (22-30); Creatinine 1 0.44 mg/dL (0.52-1.04); Glucose 97 mg/dL (74-106); Potassium 3.2 mmol/L (3.5-5.1); SODIUM 135 mmol/L (137-145)
[2017-11-21] MEDS: VANCOCIN 500 MG VIAL*** 500 MG in Sodium Chloride 100ML MINI-BAG PLUS 100 ML IV SCH (06:41)
[2017-11-21] MEDS: NovoLOG Insulin SQ SCH ×3 (08:48→16:47)
[2017-11-21 09:03] LABS: Slide Review YES
--- NOTE | 2017-11-21 12:33 | PCM.NOTE ---
Date and Time: 11/21/17 1219 Subjective Assessment: Pt is having some pain in buttocks where wounds are and in her stumps, particularly the R stump. Her appetite has increased. She noted she has lost 60 lb in the past 2 yrs. She had a PICC placed this morning. She continues to have stool from her rectum despite having an ostomy. - Review of Systems Constitutional: No Fever Skin: Decubiti Objective Exam General Appearance: mild distress (with moving), alert Neurologic Exam: oriented x 3, cooperative Skin Exam: warm, dry, other (L buttock with approx 4x4cm erythematous skin gluteal cleft superior R edge with vague approx 3x3cm erythematous area. she is actively stooling.), No rash Respiratory Exam: normal breath sounds, lungs clear, No crackles/rales, No rhonchi, No wheezing Cardiovascular Exam: regular rate/rhythm, No normal heart sounds (distant), No murmur Gastrointestinal/Abdomen Exam: soft, No tenderness Extremity Exam: other (R stump with dehiscence on approx lateral 1/3 of wound wiht some yellow exudate) OBJECTIVE DATA Vital Signs: Vital Signs - 24 hr Temp Pulse Resp BP Pulse Ox 11/21/17 11:05 97.8 F 68 20 106/58 96 11/21/17 07:23 98 F 67 20 101/55 96 11/21/17 04:25 98.1 F 68 20 95/55 97 11/21/17 00:12 98.0 F 74 18 105/57 95 11/20/17 20:35 98.1 F 74 20 95/48 97 11/20/17 19:00 96 11/20/17 16:00 98.4 F 72 18 100/57 98 Oxygen-Last 24 hours O2 Percentage 2 Liters = 28% Pain Assessment - Last Documented Pain Intensity 0 Pain Scale Used 0-10 Pain Scale Intake and Output: Intake & Output 11/19/17 11/20/17 11/21/17 11/22/17 11:59 11:59 11:59 11:59 Intake Total 2153 3431 Output Total 125 Balance 2153 3306 Weight 49.895 kg 41.5 kg 45.5 kg Lab Results: Accuchecks Date 11/20/17 Date 11/20/17 Time 22:00 Time 16:32 Accucheck Value: 143 Accucheck Value: 93 Accucheck Value: 112 Lab Results-Last 24 Hours 11/20/17 11/20/17 11/21/17 Range/Units 10:22 15:48 05:40 WBC (4.0-10.5) K/mm3 RBC (4.1-5.4) M/mm3 Hgb (12.0-16.0) gm/dl Hct (35-47) % MCV (78-100) fl MCH (26-32) pg MCHC (32-36) g/dl RDW (11.5-14.0) % Plt Count (150-450) K/mm3 MPV (6-9.5) fl Sodium (137-145) mmol/L Potassium (3.5-5.1) mmol/L Chloride (98-107) mmol/L Carbon Dioxide (22-30) mmol/L Anion Gap (5-15) MEQ/L BUN (7-17) mg/dL Creatinine (0.52-1.04) mg/dL Estimated GFR ML/MIN Glucose (74-106) mg/dL Calcium (8.4-10.2) mg/dL Iron (37-170) ug/dL Stool Occult Blood POSITIVE POSITIVE (Negative) Vancomycin Trough 7.62 L (10-20) ug/mL Slides for Path Review 11/21/17 11/21/17 11/21/17 Range/Units 05:40 05:40 05:40 WBC 5.8 (4.0-10.5) K/mm3 RBC 3.98 L (4.1-5.4) M/mm3 Hgb 8.6 L (12.0-16.0) gm/dl Hct 28.7 L (35-47) % MCV 72.1 L (78-100) fl MCH 21.6 L (26-32) pg MCHC 30.0 L (32-36) g/dl RDW 18.9 H (11.5-14.0) % Plt Count 127 L (150-450) K/mm3 MPV 10.2 H (6-9.5) fl Sodium 135 L (137-145) mmol/L Potassium 3.2 L (3.5-5.1) mmol/L Chloride 104 (98-107) mmol/L Carbon Dioxide 27 (22-30) mmol/L Anion Gap 8.0 (5-15) MEQ/L BUN 10 (7-17) mg/dL Creatinine 0.44 L (0.52-1.04) mg/dL Estimated GFR > 60.0 ML/MIN Glucose 97 (74-106) mg/dL Calcium 7.8 L (8.4-10.2) mg/dL Iron 11 L (37-170) ug/dL Stool Occult Blood (Negative) Vancomycin Trough (10-20) ug/mL Slides for Path Review YES Radiology Exams: Radiology Procedures Category Date Time Status CHEST 1 VIEW (PORTABLE) Stat Exams 11/21/17 11:51 Taken Multi-Disciplinary Progress Notes: Multi-Disciplinary Progress Notes 11/21/17 11:05 Case Management Note by Sandi White LEVEL I WEB APPROVED, NO LEVEL II REQUIRED, NO SMI/ID/RC, PLACED ON CHART. RENETTA HAS CONTACTED NADINE EVANGELISTA ON FAMILY DECISION. Initialized on 11/21/17 11:05 - END OF NOTE 11/20/17 14:15 (created 11/20/17 15:11) Case Management Note by Renetta Castelan LONG DISCUSSION WITH PT AND PT'S FAMILY AT BEDSIDE. FAMILY REPORTS THAT THEY WANT TO DO WHATEVER IS NEEDED FOR PT TO GET BACK TO PRIOR LEVEL OF FNX, BEFORE HER SURGERY. [id number] REPORTS THAT THEY FEEL THIS EPISODE COULD HAVE BEEN AVOIDED IF [facility] WOULD HAVE SENT PT TO REHAB INSTEAD OF SENDING HER HOME WITH HOME HEALTHCARE SERVICES. [id number] ALSO REPORTS THAT IT WAS ATLEAST 7 DAYS BEFORE ANYONE FROM [facility] EVEN SHOWED UP TO HER HOME. PT AND [id number] REPORT THAT THEY WILL WANT REHAB STAY ON DISCHARGE. PT REPORTS THAT SHE WANTS TO STAY NEAR WHERE DR. GRAY CAN MANAGE HER CARE. PT/FAMILY REQUESTS REFERRAL TO [facility]. DISCUSSED THAT PT'S INSURANCE WILL REQUIRE PRECERT. PT/FAMILY ALL VERBALIZED UNDERSTANDING. WILL CALL REFERRAL. DENIES ADDNL NEEDS AT PRESENT. DAUGHTER-IN -LAW FROM [place] REPORTS THAT SHE WILL BE HEADING HOME ON THURSDAY, AND WILL LEAVE THEIR CONTACT INFORMATION WITH WAREHOUSE CLERK TO PLACE IN CHART. Initialized on 11/20/17 15:11 - END OF NOTE Assessment/Plan (1) Bacteremia Current Visit: Yes Status: Acute Code(s): R78.81 - BACTEREMIA (2) Sacral decubitus ulcer Current Visit: Yes Status: Acute Onset Date: ~11/20/17 Qualifiers: Pressure injury stage: unspecified pressure injury stage Qualified Code(s) : L89.159 - Pressure ulcer of sacral region, unspecified stage Assessment & Plan: x2. On Levaquin IV. The challenge will be keeping the area clean and free from stool. A rectal tube is not available here. PT has been consulted for Thursday. Code(s): L89.159 - PRESSURE ULCER OF SACRAL REGION, UNSPECIFIED STAGE (3) Wound dehiscence, surgical Current Visit: Yes Status: Acute Onset Date: ~11/20/17 Assessment & Plan: on IV levaquin and vancomycin. If it worsens can consult surgery. (4) Wound infection Current Visit: Yes Status: Acute Onset Date: ~11/20/17 Code(s): T14.8XXA - OTHER INJURY OF UNSPECIFIED BODY REGION, INITIAL ENCOUNTER; L08.9 - LOCAL INFECTION OF THE SKIN AND SUBCUTANEOUS TISSUE, UNSP (5) Diabetes Current Visit: No Status: Chronic Code(s): E11.9 - TYPE 2 DIABETES MELLITUS WITHOUT COMPLICATIONS (6) Nephrostomy status Current Visit: Yes Status: Acute Assessment & Plan: Her nephrostomy tube appears to have some very dark fluid output. Her renal function is good. May need to consult urology. Code(s): Z93.6 - OTHER ARTIFICIAL OPENINGS OF URINARY TRACT STATUS
[2017-11-21] MEDS: PLAVIX 75 MG Tablet PO SCH (13:38)
[2017-11-21] MEDS: Neurontin 400 MG PO SCH ×3 (13:38→21:04)
[2017-11-21] MEDS: Lantus Insulin SQ SCH ×2 (13:38→21:04)
[2017-11-21] MEDS: FEOSOL 325 MG PO SCH (13:38)
[2017-11-21] MEDS: Coreg 3.125 MG PO SCH ×2 (13:38→21:04)
[2017-11-21] MEDS: Levofloxacin 500MG/100ML D5W 500 MG/100 ML BAG IV SCH (14:03)
[2017-11-21] MEDS: Sodium Chloride 0.9% W/ 20 mEq KCl/LITER 1,000 ML IV SCH (14:03)
[2017-11-21] MEDS: Monistat 7 VG SCH (21:05)
--- NOTE | 2017-11-21 21:15 | XRAY ---
Indication: PICC placement. Comparison: July 27, 2014. Portable chest demonstrates new left arm PICC line with the tip projecting over the SVC coiled over. Stable right Port-A-Cath. Lungs remain hyperinflated and clear. Heart is not enlarged. Bony thorax intact again with mild osteopenia and degenerative changes. Impression: New left arm PICC line as detailed. Comment: Preliminary interpretation was made by [facility]. No discrepancy.
--- NOTE | 2017-11-21 21:18 | XRAY ---
Indication: PICC line adjustment. Comparison: Taken earlier in the day. Portable chest demonstrates again left arm PICC line with the tip now projecting in the distal SVC and appears straight. Stable right Port-A-Cath. Lungs remain hyperinflated and clear. Heart and mediastinal structures within normal limits. Comment: Preliminary interpretation was made by [facility]. No discrepancy.
[2017-11-22] MEDS: Sodium Chloride 0.9% W/ 20 mEq KCl/LITER 1,000 ML IV SCH ×2 (01:26→14:13)
[2017-11-22 06:03] LABS: ANION GAP 9.3 MEQ/L (5-15); BLOOD UREA NITROGEN 9 mg/dL (7-17); CHLORIDE 107 mmol/L (98-107); Calcium 7.7 mg/dL (8.4-10.2); Carbon Dioxide 24 mmol/L (22-30); Glucose 70 mg/dL (74-106); Hematocrit 27.6 % (35-47); Hemoglobin 8.3 gm/dl (12.0-16.0); Mean Cell Volume 72.6 fl (78-100); Mean Corpuscular Hemoglobin 21.8 pg (26-32); Mean Corpuscular Hgb Concent. 30.1 g/dl (32-36); Mean Platelet Volume 11.1 fl (6-9.5); Platelet Count 122 K/mm3 (150-450); Potassium 3.7 mmol/L (3.5-5.1); Red Cell Distribution Width 18.7 % (11.5-14.0); SODIUM 137 mmol/L (137-145); White Blood Count 6.3 K/mm3 (4.0-10.5)
[2017-11-22 07:32] LABS: Slide Review YES
[2017-11-22] MEDS: NovoLOG Insulin SQ SCH ×3 (07:47→17:02)
[2017-11-22] MEDS: Coreg 3.125 MG PO SCH ×2 (09:13→21:31)
[2017-11-22] MEDS: FEOSOL 325 MG PO SCH (09:13)
[2017-11-22] MEDS: PLAVIX 75 MG Tablet PO SCH (09:13)
[2017-11-22] MEDS: Levofloxacin 500MG/100ML D5W 500 MG/100 ML BAG IV SCH (09:13)
[2017-11-22] MEDS: ENOXAPARIN SODIUM SQ SCH (09:14)
[2017-11-22] MEDS: Neurontin 400 MG PO SCH ×3 (09:14→21:31)
[2017-11-22] MEDS ORDERED: PHARMACY DOSING REQUIRED: VANCOMYCIN IV ONE (10:30)
--- NOTE | 2017-11-22 10:35 | PCM.NOTE ---
Date and Time: 11/22/17 1030 Subjective Assessment: She is feeling better today, states there is not much pain in her stump on the R. Has been ronald po. She was confused as to the day, she thought it was Thursday instead of Thursday. - Review of Systems Constitutional: No Fever Abdominal/Gastrointestinal: No Vomiting Objective Exam General Appearance: no apparent distress, alert Neurologic Exam: cooperative, disoriented (to day) Skin Exam: normal color, warm, dry Neck Exam: normal inspection Respiratory Exam: normal breath sounds, No crackles/rales, No rhonchi, No wheezing Cardiovascular Exam: regular rate/rhythm, normal heart sounds, No murmur Gastrointestinal/Abdomen Exam: soft, normal bowel sounds, No tenderness Extremity Exam: other (R stump with dehiscence of lateral 1/3 of wound as before - decreased yellow exudate. very mild erythema surrounding the wound edges.) Back Exam: normal inspection, No rash OBJECTIVE DATA Vital Signs: Vital Signs - 24 hr Temp Pulse Resp BP Pulse Ox 11/22/17 08:05 97 11/22/17 07:55 98.0 F 63 16 98/64 97 11/22/17 04:10 98.2 F 64 16 111/57 93 L 11/21/17 23:36 98.4 F 65 18 92/49 95 11/21/17 20:56 98 11/21/17 19:54 98.5 F 72 16 90/50 98 11/21/17 16:00 98.4 F 79 18 102/53 95 11/21/17 11:05 97.8 F 68 20 106/58 96 Pain Assessment - Last Documented Pain Intensity 3 Pain Scale Used 0-10 Pain Scale Intake and Output: Intake & Output 11/19/17 11/20/17 11/21/17 11/22/17 11:59 11:59 11:59 11:59 Intake Total 2153 3431 0237 Output Total 125 215 Balance 2153 3306 2502 Weight 49.895 kg 41.5 kg 45.5 kg 44.9 kg Lab Results: Accuchecks Date 11/22/17 Date 11/21/17 Time 07:30 Time 16:48 Accucheck Value: 74 Accucheck Value: 157 Accucheck Value: 163 Accucheck Value: 132 Lab Results-Last 24 Hours 11/22/17 11/22/17 Range/Units 05:15 05:15 WBC 6.3 (4.0-10.5) K/mm3 RBC 3.80 L (4.1-5.4) M/mm3 Hgb 8.3 L (12.0-16.0) gm/dl Hct 27.6 L (35-47) % MCV 72.6 L (78-100) fl MCH 21.8 L (26-32) pg MCHC 30.1 L (32-36) g/dl RDW 18.7 H (11.5-14.0) % Plt Count 122 L (150-450) K/mm3 MPV 11.1 H (6-9.5) fl Sodium 137 (137-145) mmol/L Potassium 3.7 (3.5-5.1) mmol/L Chloride 107 (98-107) mmol/L Carbon Dioxide 24 (22-30) mmol/L Anion Gap 9.3 (5-15) MEQ/L BUN 9 (7-17) mg/dL Creatinine 0.40 L (0.52-1.04) mg/dL Estimated GFR > 60.0 ML/MIN Glucose 70 L (74-106) mg/dL Calcium 7.7 L (8.4-10.2) mg/dL Slides for Path Review YES Radiology Exams: Radiology Procedures Category Date Time Status CHEST 1 VIEW (PORTABLE) Stat Exams 11/21/17 11:51 Completed CHEST 1 VIEW (PORTABLE) Stat Exams 11/21/17 13:07 Completed Multi-Disciplinary Progress Notes: Multi-Disciplinary Progress Notes 11/21/17 11:05 Case Management Note by Sandi White LEVEL I WEB APPROVED, NO LEVEL II REQUIRED, NO SMI/ID/RC, PLACED ON CHART. RENETTA HAS CONTACTED JEAN CARLOS, WAITING ON FAMILY DECISION. Initialized on 11/21/17 11:05 - END OF NOTE Assessment/Plan (1) Bacteremia Current Visit: Yes Status: Acute Assessment & Plan: on IV vancomycin and levaquin, pending cx results. The vancomycin was stopped in error, apparently by me (yesterday) so I have resumed that. Code(s): R78.81 - BACTEREMIA (2) UTI (urinary tract infection) Current Visit: Yes Status: Acute Onset Date: ~11/20/17 Qualifiers: Urinary tract infection type: site unspecified Hematuria presence: with hematuria Qualified Code(s): N39.0 - Urinary tract infection, site not specified; R31.9 - Hematuria, unspecified Assessment & Plan: susceptible to Levaquin Code(s): N39.0 - URINARY TRACT INFECTION, SITE NOT SPECIFIED (3) Sacral decubitus ulcer Current Visit: Yes Status: Acute Onset Date: ~11/20/17 Qualifiers: Pressure injury stage: unspecified pressure injury stage Qualified Code(s) : L89.159 - Pressure ulcer of sacral region, unspecified stage Assessment & Plan: I think wound care is the primary treatment, aside from antibiotics. The challenge is keeping the area free from stool. PT to consult tomorrow. Code(s): L89.159 - PRESSURE ULCER OF SACRAL REGION, UNSPECIFIED STAGE (4) Wound dehiscence, surgical Current Visit: Yes Status: Acute Onset Date: ~11/20/17 Qualifiers: Encounter type: subsequent encounter Qualified Code(s): T81.31XD - Disruption of external operation (surgical) wound, not elsewhere classified, subsequent encounter (5) Wound infection Current Visit: Yes Status: Acute Onset Date: ~11/20/17 Code(s): T14.8XXA - OTHER INJURY OF UNSPECIFIED BODY REGION, INITIAL ENCOUNTER; L08.9 - LOCAL INFECTION OF THE SKIN AND SUBCUTANEOUS TISSUE, UNSP (6) Diabetes Current Visit: No Status: Chronic Code(s): E11.9 - TYPE 2 DIABETES MELLITUS WITHOUT COMPLICATIONS (7) Nephrostomy status Current Visit: Yes Status: Acute Assessment & Plan: we contacted urology and nephrology yesterday regarding the fact that her nephrostomy bags have a muddy colored liquid - they both stated this could be due to infection and were not unduly concerned. She can f/u with urology outpatient. Code(s): Z93.6 - OTHER ARTIFICIAL OPENINGS OF URINARY TRACT STATUS
[2017-11-22] MEDS: Sodium Chloride 0.9% 1000 ML 1,000 ML IV SCH (10:47)
[2017-11-22] MEDS ORDERED: VANCOCIN 1 GM VIAL*** 1 GM in Sodium Chloride 0.9% 250 ML 250 ML IV ONE (11:00)
[2017-11-22] MEDS: Lantus Insulin SQ SCH ×2 (11:40→21:31)
[2017-11-22] MEDS: MORPHINE SULFATE 4 MG INJ IV PRN (14:12)
[2017-11-22] MEDS: NovoLOG Insulin SQ PRN (17:01)
[2017-11-22] MEDS: VANCOCIN 1 GM VIAL*** 0.75 GM in Sodium Chloride 0.9% 250 ML 250 ML IV SCH (21:31)
[2017-11-22] MEDS: ZOLOFT 50 MG TABLET PO SCH (21:31)
[2017-11-22] MEDS: Monistat 7 VG SCH (21:32)
[2017-11-23] MEDS: Sodium Chloride 0.9% W/ 20 mEq KCl/LITER 1,000 ML IV SCH ×2 (00:32→10:44)
[2017-11-23] MEDS: MORPHINE SULFATE 4 MG INJ IV PRN ×2 (02:50→08:34)
[2017-11-23 06:11] LABS: Granulocyte Absolute (ANC) 4.93 (1.4-6.9); Hemoglobin 7.8 gm/dl (12.0-16.0); Mean Cell Volume 72.6 fl (78-100); Mean Platelet Volume 11.4 fl (6-9.5); Platelet Count 122 K/mm3 (150-450); Red Blood Count 3.58 M/mm3 (4.1-5.4); Red Cell Distribution Width 18.7 % (11.5-14.0); White Blood Count 5.9 K/mm3 (4.0-10.5)
[2017-11-23 06:20] LABS: Mean Corpuscular Hemoglobin 21.7 pg (26-32)
[2017-11-23 06:32] LABS: ANION GAP 10.7 MEQ/L (5-15); BLOOD UREA NITROGEN 8 mg/dL (7-17); CHLORIDE 107 mmol/L (98-107); Calcium 7.6 mg/dL (8.4-10.2); Carbon Dioxide 23 mmol/L (22-30); Creatinine 1 0.39 mg/dL (0.52-1.04); Glucose 148 mg/dL (74-106); Potassium 3.8 mmol/L (3.5-5.1); SODIUM 136 mmol/L (137-145)
[2017-11-23 07:14] LABS: Lymphocytes 5 % (24-44); Monocyte 1 % (0.0-12.0); Neutrophils 94 % (36.0-66.0); Total Cells Counted 100
[2017-11-23 07:15] LABS: Platelet Estimate NORMAL (NORMAL)
[2017-11-23 07:16] LABS: ANISOCYTOSIS 1+; Hypochromia 1+; Microcytosis 1+
[2017-11-23] MEDS: NovoLOG Insulin SQ SCH ×3 (07:52→17:01)
[2017-11-23] MEDS: NovoLOG Insulin SQ PRN (07:53)
--- NOTE | 2017-11-23 08:41 | PCM.NOTE ---
Date and Time: 11/23/17 0836 Subjective Assessment: It's reported that the pt slept last night. Currently she is getting cleaned up and wounds dressed and is crying with pain. She has only been able to receive 2mg IV morphine instead of the 4mg ordered because of worry for hypotension. - Review of Systems Constitutional: No Fever Skin: Decubiti Objective Exam General Appearance: moderate distress (crying) Neurologic Exam: alert, cooperative Skin Exam: other (R buttocks with 2 decubiti. lateral is approx 3x4cm of irregular bright erythema. Medial is approx 5x6cm erosion with eschar forming and erythematous border.) Respiratory Exam: normal breath sounds, No crackles/rales, No rhonchi, No wheezing Cardiovascular Exam: regular rate/rhythm, normal heart sounds, No murmur Extremity Exam: other (RLE amputation with packing in place at area of dehiscence (lateral 1/3 of wound)) OBJECTIVE DATA Vital Signs: Vital Signs - 24 hr Temp Pulse Resp BP Pulse Ox 11/23/17 07:16 97.9 F 72 18 106/60 95 11/23/17 03:41 98.5 F 69 16 103/58 98 11/23/17 00:00 98.9 F 70 16 105/52 98 11/22/17 19:55 98.7 F 75 18 98/47 97 11/22/17 18:57 98 11/22/17 16:00 98.6 F 70 17 129/60 99 11/22/17 12:00 98.2 F 66 16 92/49 98 Pain Assessment - Last Documented Pain Intensity 3 Pain Scale Used 0-10 Pain Scale Intake and Output: Intake & Output 11/20/17 11/21/17 11/22/17 11/23/17 11:59 11:59 11:59 11:59 Intake Total 2153 3431 6347 2863 Output Total 125 215 703 Balance 2153 7086 2502 2160 Weight 41.5 kg 45.5 kg 44.9 kg 48.4 kg Lab Results: Accuchecks Date 11/22/17 Date 11/22/17 Time 21:00 Time 11:30 Accucheck Value: 141 Accucheck Value: 245 Accucheck Value: 271 Lab Results-Last 24 Hours 11/23/17 11/23/17 Range/Units 05:17 05:17 WBC 5.9 (4.0-10.5) K/mm3 RBC 3.58 L (4.1-5.4) M/mm3 Hgb 7.8 L (12.0-16.0) gm/dl Hct 26.0 L (35-47) % MCV 72.6 L (78-100) fl MCH 21.7 L (26-32) pg MCHC 30.0 L (32-36) g/dl RDW 18.7 H (11.5-14.0) % Plt Count 122 L (150-450) K/mm3 MPV 11.4 H (6-9.5) fl Absolute Granulocytes 4.93 (1.4-6.9) Segmented Neutrophils 94 H (36.0-66.0) % Lymphocytes (Manual) 5 L (24-44) % Monocytes (Manual) 1 (0.0-12.0) % Hypochromia 1+ Platelet Estimate NORMAL (NORMAL) RBC Morphology ABNORMAL Anisocytosis 1+ Microcytosis 1+ Sodium 136 L (137-145) mmol/L Potassium 3.8 (3.5-5.1) mmol/L Chloride 107 (98-107) mmol/L Carbon Dioxide 23 (22-30) mmol/L Anion Gap 10.7 (5-15) MEQ/L BUN 8 (7-17) mg/dL Creatinine 0.39 L (0.52-1.04) mg/dL Estimated GFR > 60.0 ML/MIN Glucose 148 H (74-106) mg/dL Calcium 7.6 L (8.4-10.2) mg/dL Radiology Exams: Radiology Procedures Category Date Time Status CHEST 1 VIEW (PORTABLE) Stat Exams 11/21/17 11:51 Completed CHEST 1 VIEW (PORTABLE) Stat Exams 11/21/17 13:07 Completed Multi-Disciplinary Progress Notes: Multi-Disciplinary Progress Notes 11/22/17 23:17 Nutrition Note by Lucila Smalls Pt had srawberry ice cream for snack - 210 calories Initialized on 11/22/17 23:17 - END OF NOTE Assessment/Plan (1) Bacteremia Current Visit: Yes Status: Acute Assessment & Plan: The GPCs were coag-neg staph in 1 bottle, but I did ask lab to continue evaluating for susceptibility in light of her multiple comorbidities. Code(s): R78.81 - BACTEREMIA (2) UTI (urinary tract infection) Current Visit: Yes Status: Acute Onset Date: ~11/20/17 Qualifiers: Urinary tract infection type: site unspecified Hematuria presence: with hematuria Qualified Code(s): N39.0 - Urinary tract infection, site not specified; R31.9 - Hematuria, unspecified Assessment & Plan: On IV levaquin day #4. Code(s): N39.0 - URINARY TRACT INFECTION, SITE NOT SPECIFIED (3) Sacral decubitus ulcer Current Visit: Yes Status: Acute Onset Date: ~11/20/17 Qualifiers: Pressure injury stage: unspecified pressure injury stage Qualified Code(s) : L89.159 - Pressure ulcer of sacral region, unspecified stage Assessment & Plan: On IV vancomycin day #4. PT to eval today. Pt has quite a bit of pain. The main issue is that she keeps passing stool from her rectum which soils the wounds. We don't have rectal tubes available; this would be an ideal intervention for her. Code(s): L89.159 - PRESSURE ULCER OF SACRAL REGION, UNSPECIFIED STAGE (4) Wound dehiscence, surgical Current Visit: Yes Status: Acute Onset Date: ~11/20/17 Qualifiers: Encounter type: subsequent encounter Qualified Code(s): T81.31XD - Disruption of external operation (surgical) wound, not elsewhere classified, subsequent encounter (5) Wound infection Current Visit: Yes Status: Acute Onset Date: ~11/20/17 Code(s): T14.8XXA - OTHER INJURY OF UNSPECIFIED BODY REGION, INITIAL ENCOUNTER; L08.9 - LOCAL INFECTION OF THE SKIN AND SUBCUTANEOUS TISSUE, UNSP (6) Diabetes Current Visit: No Status: Chronic Code(s): E11.9 - TYPE 2 DIABETES MELLITUS WITHOUT COMPLICATIONS (7) Nephrostomy status Current Visit: Yes Status: Acute Code(s): Z93.6 - OTHER ARTIFICIAL OPENINGS OF URINARY TRACT STATUS (8) Anemia Current Visit: Yes Status: Acute Assessment & Plan: Hgb has been steadily decreasing since admission. No active bleeding. No sx that I am aware of, but pt is not upright walking. HR is wnl. Will continue to observe for now. Code(s): D64.9 - ANEMIA, UNSPECIFIED
[2017-11-23] MEDS: SUBLIMAZE 100 MCG/2 ML IV PRN ×3 (09:24→22:27)
[2017-11-23] MEDS: Levofloxacin 500MG/100ML D5W 500 MG/100 ML BAG IV SCH (09:28)
[2017-11-23] MEDS: FEOSOL 325 MG PO SCH (09:29)
[2017-11-23] MEDS: Neurontin 400 MG PO SCH ×3 (09:29→21:57)
[2017-11-23] MEDS: PLAVIX 75 MG Tablet PO SCH (09:29)
[2017-11-23] MEDS: Lantus Insulin SQ SCH ×2 (09:30→21:57)
[2017-11-23] MEDS: Coreg 3.125 MG PO SCH ×2 (09:30→21:57)
[2017-11-23] MEDS: ENOXAPARIN SODIUM SQ SCH (09:30)
[2017-11-23] MEDS: VANCOCIN 1 GM VIAL*** 0.75 GM in Sodium Chloride 0.9% 250 ML 250 ML IV SCH (10:41)
[2017-11-23] MEDS ORDERED: SUBLIMAZE 100 MCG/2 ML IV ONE (17:35)
[2017-11-23] MEDS: Lactated Ringers 1,000 ML IV SCH (17:55)
[2017-11-23] MEDS: ZOLOFT 50 MG TABLET PO SCH (21:57)
[2017-11-23] MEDS: Monistat 7 VG SCH (21:57)
[2017-11-24] MEDS: Lactated Ringers 1,000 ML IV SCH (03:15)
[2017-11-24] MEDS: VANCOCIN 1 GM VIAL*** 0.75 GM in Sodium Chloride 0.9% 250 ML 250 ML IV SCH ×2 (03:15→10:46)
[2017-11-24] MEDS ORDERED: D50W 50 ml Abboject IV ONE (05:17)
[2017-11-24] MEDS ORDERED: D50W 50 ml Abboject IV PRN ×2 (05:23→05:25)
[2017-11-24] MEDS ORDERED: Glutose 15 GM ORAL GEL PO PRN (05:25)
[2017-11-24] MEDS ORDERED: GlucaGen 1 MG IM PRN (05:25)
[2017-11-24 05:36] LABS: ALBUMIN 2.4 g/dL (3.5-5.0); ALKALINE PHOSPHATASE 114 U/L (38-126); ANION GAP 9.9 MEQ/L (5-15); BLOOD UREA NITROGEN 8 mg/dL (7-17); CHLORIDE 107 mmol/L (98-107); Calcium 7.8 mg/dL (8.4-10.2); Carbon Dioxide 25 mmol/L (22-30); Creatinine 1 0.29 mg/dL (0.52-1.04); SGOT/AST 55 U/L (14-36); SGPT/ALT 29 U/L (0-35); SODIUM 138 mmol/L (137-145); Total Protein 5.7 g/dL (6.3-8.2)
[2017-11-24 05:44] LABS: Glucose < 20 mg/dL (74-106)
[2017-11-24 05:45] LABS: Potassium 2.9 mmol/L (3.5-5.1)
[2017-11-24] MEDS ORDERED: Dextrose 5% -0.45 NaCl 1000 ML 1,000 ML IV SCH (06:45)
[2017-11-24] MEDS ORDERED: K-LYTE 25 MEQ PO ONE (06:50)
--- NOTE | 2017-11-24 08:51 | XRAY ---
Indication: Patient's nurse states unable to flush left nephrostomy tube. Multiple contiguous axial images obtained through the abdomen and pelvis without contrast as ordered. Comparison: August 29, 2014. Lung bases demonstrates minimal bibasilar atelectasis/scarring. No infiltrate or effusion. Heart is not enlarged. Stable right anterior lateral chest/abdomen/pelvic wall vascular graft connecting to a bifemoral bypass stent graft. Lack of contrast precludes evaluation for graft patency. Again there are multiple surgical clips anterior to the aorta and right pelvis producing beam artifact. New bilateral posterior percutaneous nephrostomy tubes with pigtail tips in the renal pelvis. Also new moderate/negative again bilateral hydronephrosis and hydroureter. No perinephric fluid. Urinary bladder is distended with large intraluminal debris mixed with air bubbles and nondependent air concerning for infectious process. Stomach is distended with food/fluid. Noncontrasted stomach and bowel loops appear nonobstructed again with left lower quadrant ostomy and a few peristomal macrocalcifications. Interval peristomal subcutaneous induration with 1.4 x 2.7 cm subcutaneous fluid seen laterally. New mild diffuse scattered colonic fecal debris. Interval cholecystectomy. No free air. Remaining liver, pancreas, spleen, and adrenal glands appear unremarkable for noncontrast exam. Again extensive scattered vascular calcifications, especially aortoiliac vessels. No AAA. Osseous structures intact again with osteopenia and mild/moderate degenerative changes throughout the spine and both hips. Impression: 1. New bilateral hydronephrosis and hydroureter with bilateral percutaneous nephrostomy catheters in situ. Suspect distal obstructive uropathy presumed from abnormal urinary bladder. Bladder is distended with new intraluminal debris mixed with air concerning for infectious process. 2. New fecal stasis without obstruction. 3. Again left lower quadrant ostomy. Peristomal soft tissues appear indurated with small fluid collection. Rule out underlying inflammatory process. 4. 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 CT DI 8.67
--- NOTE | 2017-11-24 09:04 | PCM.NOTE ---
Date and Time: 11/24/17 0857 Subjective Assessment: This morning her BS was noted to be 17; BMP from lab read < 20. She was given an amp of D50 and now has D5 1/2 NS running at 100cc/hr with BS in the 150s. She was given her regular dose of lantus 30mg SQ last night. Did not eat well last night apparently. Also this morning her rectal temp was 93 so she currently has a Shaylee hugger in place. She c/o "a little" pain with her wounds being cleaned. Having more ostomy output. CT ordered yesterday by nephrology with some hydronephrosis. - Review of Systems Constitutional: No Fever Objective Exam General Appearance: no apparent distress, alert Neurologic Exam: cooperative, other (oriented to yesterday's events, but confused about this morning.) Ears, Nose, Throat Exam: moist mucous membranes Neck Exam: normal inspection Respiratory Exam: normal breath sounds, lungs clear, No crackles/rales, No rhonchi, No wheezing Cardiovascular Exam: regular rate/rhythm, normal heart sounds, No murmur Gastrointestinal/Abdomen Exam: soft, normal bowel sounds, other (colostomy in place), No tenderness, No distention, No mass, No guarding, No rebound OBJECTIVE DATA Vital Signs: Vital Signs - 24 hr Temp Pulse Resp BP Pulse Ox 11/24/17 07:40 66 16 90/50 96 11/24/17 07:03 96 11/24/17 05:20 77 26 H 107/50 90 L 11/24/17 03:51 98.2 F 86 18 161/72 95 11/24/17 00:25 98.8 F 75 18 107/53 97 11/23/17 20:00 98.9 F 95 H 18 137/65 97 11/23/17 18:00 94 L 11/23/17 15:27 98.1 F 64 18 104/58 94 L 11/23/17 11:05 97.8 F 79 18 105/51 95 Pain Assessment - Last Documented Pain Intensity 0 Pain Scale Used 0-10 Pain Scale Intake and Output: Intake & Output 11/21/17 11/22/17 11/23/17 11/24/17 11:59 11:59 11:59 11:59 Intake Total 3431 2717 3103 2461 Output Total 125 215 703 620 Balance 3306 2502 2400 1841 Weight 45.5 kg 44.9 kg 48.4 kg 45.6 kg Lab Results: Accuchecks Date 11/24/17 Date 11/24/17 Date 11/24/17 Date 11/24/17 Date 11/23/17 Date 11/23/17 Date 11/23/17 Time 21:30 Time 16:30 Time 11:30 Accucheck Value: 156 Accucheck Value: 116 Accucheck Value: 54 Accucheck Value: 93 Accucheck Value: 16 Accucheck Value: 102 Accucheck Value: 182 Lab Results-Last 24 Hours 11/23/17 11/24/17 Range/Units 10:44 05:15 Sodium 138 (137-145) mmol/L Potassium 2.9 L* (3.5-5.1) mmol/L Chloride 107 (98-107) mmol/L Carbon Dioxide 25 (22-30) mmol/L Anion Gap 9.9 (5-15) MEQ/L BUN 8 (7-17) mg/dL Creatinine 0.29 L (0.52-1.04) mg/dL Estimated GFR > 60.0 ML/MIN Glucose < 20 L* (74-106) mg/dL Calcium 7.8 L (8.4-10.2) mg/dL Total Bilirubin 0.20 (0.2-1.3) mg/dL AST 55 H (14-36) U/L ALT 29 (0-35) U/L Alkaline Phosphatase 114 (38-126) U/L Serum Total Protein 5.7 L (6.3-8.2) g/dL Albumin 2.4 L (3.5-5.0) g/dL Stool Occult Blood POSITIVE (Negative) Radiology Exams: Radiology Procedures Category Date Time Status ABDOMEN AND PELVIS W/0 CONTRAS [CT] Routine Exams 11/23/17 18:05 Completed Multi-Disciplinary Progress Notes: Multi-Disciplinary Progress Notes 11/23/17 18:07 Physical Therapy Note by Joy Le PT. SEEN THIS DATE FOR WOUND MANAGEMENT AND PROGRESSION OF FUNCTIONAL MOBILITY TOLERATED. PT. IS ALERT AND ORIENTED. PT. C/O SEVERE BUTTOCK PN D/T SKIN IRRITATION FROM CONTINUOUS LOOSE BOWEL MOVEMENTS. NOTED SIGNIFICANT INCREASED REDNESS IN PERIWOUND. NSG HAD BEGUN APPLYING BARRIER AND ZINC OINTMENTS TO DECREASE IRRITATION. STAGE I L GREATER TROCHANTER IS LESS RED TODAY. CLEANSED DEHISCENT R STUMP INCISION W/ HIBICLENS, APPLIED BARRIER CREAM TO DRY PERIWOUND , ALGINATE/SAF-GEL COMBO TO WOUND BED, DRESSED W/ FOAM AND COVER-ROLL. TENDERNESS W/ DRSG TO CHANGE TO R STUMP WELL. PT. REQUIRES MOD TO MAX ASSIST FOR BED MOBILITY AND HAS REFUSED TO TRANSFER TO A CHAIR D/T BUTTOCK PN AND GENERALLY NOT FEELING WELL. WILL CONT. W/ W/C AND ATTEMPT FUNCTIONAL MOBILITY TOLERATED. JOY LE PT Initialized on 11/23/17 18:07 - END OF NOTE 11/23/17 16:05 Nutrition Note by Salud Stanton F/u Note: 2400 ADA diet with prostat and glucerna con't. Pt's po intake 25-75%. Most days <1200 kcals. Weight 48.4 - up 6.9 kg - note +fluid balance 2220 mls. Labs 11/23= Na 136, Cr 0.39, glu 148. Goals #1 and #3 met, goal #2 not met consistently. Goals to con't. Will con't to monitor and f/u prn. T.ADALGISA Stanton Initialized on 11/23/17 16:05 - END OF NOTE Assessment/Plan (1) Bacteremia Current Visit: Yes Status: Acute Code(s): R78.81 - BACTEREMIA (2) UTI (urinary tract infection) Current Visit: Yes Status: Acute Onset Date: ~11/20/17 Qualifiers: Urinary tract infection type: site unspecified Hematuria presence: with hematuria Qualified Code(s): N39.0 - Urinary tract infection, site not specified; R31.9 - Hematuria, unspecified Code(s): N39.0 - URINARY TRACT INFECTION, SITE NOT SPECIFIED (3) Sacral decubitus ulcer Current Visit: Yes Status: Acute Onset Date: ~11/20/17 Qualifiers: Pressure injury stage: unspecified pressure injury stage Qualified Code(s) : L89.159 - Pressure ulcer of sacral region, unspecified stage Code(s): L89.159 - PRESSURE ULCER OF SACRAL REGION, UNSPECIFIED STAGE (4) Wound dehiscence, surgical Current Visit: Yes Status: Acute Onset Date: ~11/20/17 Qualifiers: Encounter type: subsequent encounter Qualified Code(s): T81.31XD - Disruption of external operation (surgical) wound, not elsewhere classified, subsequent encounter Assessment & Plan: PT seeing pt. On IV vancomycin. (5) Wound infection Current Visit: Yes Status: Acute Onset Date: ~11/20/17 Assessment & Plan: Pt to have rectal tube placed today (I discussed this with pt) - should help to have clean wound beds. Code(s): T14.8XXA - OTHER INJURY OF UNSPECIFIED BODY REGION, INITIAL ENCOUNTER; L08.9 - LOCAL INFECTION OF THE SKIN AND SUBCUTANEOUS TISSUE, UNSP (6) Diabetes Current Visit: No Status: Chronic Assessment & Plan: wiht hypoglycemia this a.m. Decreasing lantus to 15 units BID for now. Code(s): E11.9 - TYPE 2 DIABETES MELLITUS WITHOUT COMPLICATIONS (7) Nephrostomy status Current Visit: Yes Status: Acute Assessment & Plan: CT ordered yesterday by nephrology shows hydronephrosis. Tubes without much output. Code(s): Z93.6 - OTHER ARTIFICIAL OPENINGS OF URINARY TRACT STATUS (8) Anemia Current Visit: Yes Status: Acute Assessment & Plan: Hgb pending this morning. Hemoccult + x 2. Code(s): D64.9 - ANEMIA, UNSPECIFIED (9) Urinary incontinence Current Visit: Yes Status: Acute Assessment & Plan: Urinary catheter to be placed Code(s): R32 - UNSPECIFIED URINARY INCONTINENCE (10) Hydronephrosis Current Visit: Yes Status: Acute Assessment & Plan: Hope to see improvement wiht catheter placement. May need u/s tomorrow. Code(s): N13.30 - UNSPECIFIED HYDRONEPHROSIS (11) Hypokalemia Current Visit: Yes Status: Acute Assessment & Plan: repleting po. check BMP/Mg at 11 am. Code(s): E87.6 - HYPOKALEMIA (12) Hypothermia Current Visit: Yes Status: Acute Assessment & Plan: I think likely related to the very low BS this morning - will continue to monitor. on Shaylee hugger now. Code(s): T68.XXXA - HYPOTHERMIA, INITIAL ENCOUNTER
[2017-11-24] MEDS: NovoLOG Insulin SQ SCH ×3 (09:08→17:18)
[2017-11-24] MEDS: ENOXAPARIN SODIUM SQ SCH (09:31)
[2017-11-24] MEDS: Neurontin 400 MG PO SCH ×2 (09:31→15:40)
[2017-11-24] MEDS: Levofloxacin 500MG/100ML D5W 500 MG/100 ML BAG IV SCH (09:31)
[2017-11-24] MEDS: FEOSOL 325 MG PO SCH (09:31)
[2017-11-24] MEDS: PLAVIX 75 MG Tablet PO SCH (09:31)
[2017-11-24] MEDS: Coreg 3.125 MG PO SCH (09:31)
[2017-11-24] MEDS ORDERED: Lantus Insulin SQ SCH ×3 (10:00→22:00)
[2017-11-24] MEDS ORDERED: Klor Con 10 MEQ PO SCH (10:00)
[2017-11-24] MEDS ORDERED: Venofer 100 MG/5 ML*** 200 MG in Sodium Chloride 0.9% 100 ML IVPB 100 ML IV SCH (10:00)
--- NOTE | 2017-11-24 10:17 | CONS ---
CONSULT DATE: 09/23/2017 REASON FOR CONSULT: Non-draining left nephrostomy. HISTORY: Miss Meenakshi Earl is a very pleasant 67 year-old lady who has multiple medical problems. She has history of cervical cancer, has bilateral nephrostomy, has history of gangrene and amputation by Dr. Scott. The patient has been becoming increasingly difficult to take care of at home. She had home visits. The patient had pain in the gluteal area from decubitus ulcers. She had open area over her leg on the suture line where she had amputation. She was brought into the hospital. Her nephrostomies were not draining well mainly left and a renal consultation was called. REVIEW OF SYSTEMS: The patient denies any vomiting or diarrhea. She denies any suprapubic pain. No flank pain. No hematuria. No obvious bleeding from any of the orifices. She is fatigued, weak and tired. No chest pain. No abdominal pain. No focal weakness. No blurry vision. No seizures. No stroke. All systems were reviewed in details and pertinent mentioned here and in history of present illness. The rest of the review of systems were negative. Urine culture has been negative. PAST MEDICAL HISTORY: Cervical cancer. Diabetes mellitus type 2 poorly controlled. No known history of chronic kidney disease. Baseline creatinine within normal limits. Decubitus ulcer. Peripheral neuropathy. History of depression. Prior history of urinary tract infection. Amputation. PAST SURGICAL HISTORY: Amputation. Cholecystectomy. Colon resection. Hysterectomy. Vascular surgery. Colostomy. 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 HOME MEDICATIONS: Home medications and hospital medications noted. Home medications included carvedilol, Plavix, gabapentin, insulin. Details of doses are noted. ALLERGIES: CODEINE, DIAZEPAM, DILAUDID, PENICILLIN. PHYSICAL EXAMINATION: Revealed a very sick lady. Vital signs were reviewed. HEENT: Normocephalic, atraumatic, pale conjunctivae, nonicteric sclera. NECK: Supple. No lymphadenopathy. No JVD. CHEST: Clear to auscultation. No distress. CVS: S1, S2 normal. No rub or gallop. ABDOMEN: Soft, nontender. Bilateral nephrostomies noted. No flow of urine in left nephrostomy. No hematuria. EXTREMITIES: No cyanosis or clubbing. Bilateral amputation (above knee amputation noted). SKIN: No diffuse rashes. Skin turgor reduced. MUSCULOSKELETAL: No acute joint swelling, redness, nontender. NEUROLOGIC: The patient is alert, awake and oriented x3. LAB DATA AND TESTS: Lab data was reviewed. Hemoglobin 7.8, Urine culture was negative. Blood cultures and wound cultures were reviewed. Bicarbonate levels were normal. Initial potassium was low which was repleted. Iron profile shows low iron. Potassium 3.8. Sodium levels were 136. Calcium levels were normal with albumin correction. ASSESSMENT: 1) Bilateral hydronephrosis with bilateral nephrostomy. Left nephrostomy not draining but overall not impacting renal function. This could be because of well function of right side. This could also because of the fact that the left side is maybe atrophied. I suggested the RN to flush the left-sided nephrostomy with 20 cc of normal saline. We will get CT scan of abdomen and pelvis without contrast to see the position of nephrostomy. If the kidney size is normal and nephrostomy is displaced it might need to be placed in position by the radiologist. 2) Anemia because of chronic of illness. Iron stores were low. Give Venofer 200 mg IV x3 doses. Blood cultures were negative. 3) Chronic kidney disease not otherwise specified. At this time glomerular filtration rate is more than 60 and I will not label her as having chronic kidney disease. 4) Metabolic acidosis. Even though she has history of colostomy, bilateral urostomy, serum bicarbonate levels are normal. 5) Hyponatremia because of poor osmolar intake and blood sugar of around 150. Corrected sodium is near normal. 6) Hypokalemia. Because of poor p.o. intake, replaced, continue lactated Ringer's. All questions were answered. I will follow the results of the CT scan.
[2017-11-24 10:30] LABS: Folate (Folic Acid) 7.74 ng/mL (2.76 - >20)
[2017-11-24 11:32] LABS: ANION GAP 8.6 MEQ/L (5-15); BLOOD UREA NITROGEN 8 mg/dL (7-17); CHLORIDE 105 mmol/L (98-107); Calcium 7.4 mg/dL (8.4-10.2); Carbon Dioxide 25 mmol/L (22-30); Glucose 194 mg/dL (74-106); Potassium 3.6 mmol/L (3.5-5.1); SODIUM 135 mmol/L (137-145)
[2017-11-24] MEDS: SUBLIMAZE 100 MCG/2 ML IV PRN (12:28)
[2017-11-24] MEDS ORDERED: MAG-OX 400 PO SCH (12:30)
[2017-11-24] MEDS ORDERED: NORCO 5/325 MG PO PRN (15:47)
[2017-11-24 16:17] VITALS: BP 116/59; PULSE 66; O2SAT 98
[2017-11-25] MEDS ORDERED: TROUGH DRUG LEVELS IJ ONE (09:30)
== END 2017-11-24 19:42 | disposition short-term general hospital (02) | DRG 872 ==
LOC: ED 10:20 → OBSVTOIN 14:22 → MED SURG 14:22
PROVIDERS: ADMIT Internal Medicine; ATTEND Internal Medicine
DX: R78.81 Bacteremia (principal); L89.229 Pressure ulcer of left hip, unspecified stage; N13.30 Unspecified hydronephrosis; E87.2 Acidosis; E87.1 Hypo-osmolality and hyponatremia; N39.0 Urinary tract infection, site not specified; T14.8XXA Other injury of unspecified body region, initial encounter; L08.9 Local infection of the skin and subcutaneous tissue, unspecified; L89.159 Pressure ulcer of sacral region, unspecified stage; G62.9 Polyneuropathy, unspecified; D64.9 Anemia, unspecified; R32 Unspecified urinary incontinence; E87.6 Hypokalemia; T68.XXXA Hypothermia, initial encounter; I25.10 Atherosclerotic heart disease of native coronary artery without angina pectoris; I73.9 Peripheral vascular disease, unspecified; E11.9 Type 2 diabetes mellitus without complications; Z79.4 Long term (current) use of insulin; K50.90 Crohn's disease, unspecified, without complications; N18.9 Chronic kidney disease, unspecified; F32.9 Major depressive disorder, single episode, unspecified; Z85.41 Personal history of malignant neoplasm of cervix uteri; K60.5 Anorectal fistula; Z93.3 Colostomy status; Z90.49 Acquired absence of other specified parts of digestive tract; Z72.0 Tobacco use; Z79.899 Other long term (current) drug therapy; T81.31XD Disruption of external operation (surgical) wound, not elsewhere classified, subsequent encounter; Z89.612 Acquired absence of left leg above knee; Z89.611 Acquired absence of right leg above knee
CPT/HCPCS: 36000; 36415; 71045; 74176; 80048; 80053; 80202; 81000; 82272; 82607; 82746; 82962; 83540; 83605; 83735; 85025; 85027; 87040; 87070; 87077; 87086; 87186; 93005; 94760; 94762; 96360; 96361; 96365; 96372; 96374; 96375; 99285; J1642; J1650; J1756; J1956; J2270; J2550; J3010; J3370; A9270-GY